=== PATIENT | female | born 1960 | race Caucasian/White ===

== ENCOUNTER 2023-08-22 01:14 | Inpatient (IN) ==
[2023-08-22] MEDS ORDERED: IOPAMIDOL 100 ML BOTTLE IV ONE (01:15)
[2023-08-22] MEDS: fentaNYL 100 MCG/2 ML VIAL IV ONE (02:01)
[2023-08-22] MEDS: ONDANSETRON 4 MG/2 ML VIAL IV ONE (02:02)
[2023-08-22 02:37] LABS: Basophils # (Auto) 0.03 K/mcL (0.00-0.30); Basophils % (Auto) 0.4 % (0.0-2.0); Eosinophils # (Auto) 0.01 K/mcL (0.00-0.70); Eosinophils % (Auto) 0.1 % (0.0-7.0); Hematocrit 36.6 % (34.1-44.9); Hemoglobin 12.7 g/dL (11.2-15.7); Lymphocytes # (Auto) 1.09 K/mcL (1.50-4.80); Lymphocytes % (Auto) 13.1 % (15.5-49.0); Mean Cell Volume 90.8 fL (80.0-100.0); Mean Corpuscular HGB Conc 34.7 g/dL (31.0-36.0); Mean Platelet Volume 12.3 fL (8.8-12.5); Monocytes # (Auto) 0.52 K/mcL (0.10-0.90); Monocytes % (Auto) 6.2 % (1.0-12.0); Neutrophils % (Auto) 80.1 % (38.0-78.0); Platelet Count 180 K/mcL (140-440); RBC 4.03 M/mcL (3.59-5.38); Red Cell Distribution Width 13.2 % (11.5-14.5); WBC 8.3 K/mcL (4.5-11.0)
[2023-08-22 02:52] LABS: ALT/SGPT 73 U/L (<40); AST/SGOT 68 U/L (<32); Albumin 4.3 gm/dL (3.2-5.2); Albumin/Globulin Ratio 1.2 (1.0-2.3); Alkaline Phosphatase 728 U/L (39-117); Bilirubin,Total 2.4 mg/dL (0.1-1.0); Blood Urea Nitrogen 10 mg/dL (8-23); Calcium 9.7 mg/dL (8.6-10.4); Carbon Dioxide 23 mmol/L (22-30); Chloride 98 mmol/L (96-108); Globulin 3.6 gm/dL (2.2-3.7); Glomerular Filtration Rate 101; Glucose 177 mg/dL (70-105)
[2023-08-22] MEDS: PROMETHAZINE 25 MG/ML VIAL IV ONE (03:05)
[2023-08-22] MEDS: KETOROLAC 15 MG/ML VIAL IV ONE (07:03)
[2023-08-22] MEDS: PIPERACILLIN SODIUM/TAZOBACTAM 3.375 GM in DEXTROSE 5% IN WATER 50 ML IV ONE (07:03)
[2023-08-22] MEDS: 0.9 % SODIUM CHLORIDE 1,000 ML IV ONE (07:10)
[2023-08-22] MEDS: ACETAMINOPHEN 1,000 MG/100 ML BAG IV ONE (14:40)
[2023-08-22] MEDS: ACETAMINOPHEN 325 MG TABLET PO ONE (14:41)
[2023-08-22] MEDS: morphine 2 MG/ML VIAL IV ONE (14:41)
[2023-08-22] MEDS: ACETAMINOPHEN 1,000 MG/100 ML BAG IV SCH (15:12)
[2023-08-22] MEDS: 0.45 % SODIUM CHLORIDE 1,000 ML IV SCH (15:12)
[2023-08-22] MEDS: PIPERACILLIN SODIUM/TAZOBACTAM 3.375 GM in DEXTROSE 5% IN WATER 100 ML IV SCH (15:36)
[2023-08-22] MEDS: DOCUSATE SODIUM 100 MG CAPSULE PO SCH (20:30)
[2023-08-22] MEDS: SENNOSIDES 1 TABLET PO SCH (20:30)
[2023-08-22] MEDS: 0.9 % SODIUM CHLORIDE 10 ML SYRINGE IV SCH (20:30)
[2023-08-23] MEDS: PIPERACILLIN SODIUM/TAZOBACTAM 3.375 GM in DEXTROSE 5% IN WATER 50 ML IV SCH (06:29)
[2023-08-23 08:30] LABS: Basophils # (Auto) 0.04 K/mcL (0.00-0.30); Basophils % (Auto) 0.2 % (0.0-2.0); Eosinophils # (Auto) 0.01 K/mcL (0.00-0.70); Eosinophils % (Auto) 0.1 % (0.0-7.0); Hematocrit 34.9 % (34.1-44.9); Hemoglobin 11.6 g/dL (11.2-15.7); Lymphocytes # (Auto) 2.03 K/mcL (1.50-4.80); Lymphocytes % (Auto) 11.7 % (15.5-49.0); Mean Cell Volume 93.6 fL (80.0-100.0); Mean Corpuscular HGB Conc 33.2 g/dL (31.0-36.0); Mean Platelet Volume 13.2 fL (8.8-12.5); Monocytes # (Auto) 1.32 K/mcL (0.10-0.90); Monocytes % (Auto) 7.6 % (1.0-12.0); Neutrophils % (Auto) 80.1 % (38.0-78.0); Platelet Count 165 K/mcL (140-440); RBC 3.73 M/mcL (3.59-5.38); Red Cell Distribution Width 13.5 % (11.5-14.5); WBC 17.4 K/mcL (4.5-11.0)
[2023-08-23 08:53] LABS: ALT/SGPT 77 U/L (<40); AST/SGOT 78 U/L (<32); Albumin 3.6 gm/dL (3.2-5.2); Albumin/Globulin Ratio 1.1 (1.0-2.3); Alkaline Phosphatase 585 U/L (39-117); Bilirubin,Direct 2.2 mg/dL (<0.3); Bilirubin,Total 3.6 mg/dL (0.1-1.0); Blood Urea Nitrogen 7 mg/dL (8-23); Calcium 8.8 mg/dL (8.6-10.4); Carbon Dioxide 23 mmol/L (22-30); Chloride 100 mmol/L (96-108); Globulin 3.2 gm/dL (2.2-3.7); Glomerular Filtration Rate 95; Glucose 133 mg/dL (70-105); Lactate Dehydrogenase 307 U/L (135-225); Phosphorous 2.6 mg/dL (2.5-4.5); Triglycerides 98 mg/dL (<150)
[2023-08-23] MEDS: HYDROmorphone 1 MG/ML SYRINGE IV PRN (11:04)
[2023-08-23 11:12] LABS: Appearance,Urine Clear (Clear); Bacteria,Urine 0 /hpf (0); Bilirubin,Urine Small mg/dL (Negative); Color,Urine Yellow; Culture Indicated,Urine No; Glucose,Urine (UA) Negative (Negative); Ketones,Urine Negative (Negative); Leukocyte Esterase,Urine Negative /uL (Negative); Nitrate,Urine Negative (Negative); Protein,Urine Trace mg/dL (Negative); Urine Blood Small ery/mcL (Negative); Urine RBC 1 /hpf (0-3); Urine Squamous Epithelial Cell 1 /hpf (0-4); Urine WBC 1 /hpf (0-4); Urobilinogen,Urine Normal
[2023-08-23] MEDS: ONDANSETRON 4 MG/2 ML VIAL IV PRN (11:13)
[2023-08-23] MEDS ORDERED: fentaNYL 100 MCG/2 ML VIAL ONE (12:58)
[2023-08-23] MEDS ORDERED: SUGAMMADEX SODIUM 200 MG/2 ML VIAL IV ONE (12:58)
[2023-08-23] MEDS ORDERED: KETAMINE 50 MG/ML Syringe IV ONE (13:00)
[2023-08-23] MEDS ORDERED: PROPOFOL 200 MG/20 ML VIAL IV ONE (13:00)
[2023-08-23] MEDS ORDERED: ROCURONIUM 10 MG/ML ML IV ONE ×2 (13:00→14:17)
[2023-08-23] MEDS ORDERED: GLYCOPYRROLATE 0.2 MG/ML VIAL IV ONE (13:01)
[2023-08-23] MEDS ORDERED: DEXAMETHASONE 10 MG/ML VIAL ONE (13:01)
[2023-08-23] MEDS ORDERED: ONDANSETRON 4 MG/2 ML VIAL ONE (13:01)
[2023-08-23] MEDS ORDERED: SUCCINYLCHOLINE 200 MG/10 ML VIAL IV ONE (13:09)
[2023-08-23] MEDS ORDERED: PHENYLephrine 1 MG/10 ML SYRINGE (ANEST) ONE (13:21)
[2023-08-23] MEDS ORDERED: MAGNESIUM SULFATE 2 GM/50 ML BAG IV ONE (13:36)
[2023-08-23] MEDS ORDERED: 0.9 % SODIUM CHLORIDE 100 ML IV ONE (14:21)
[2023-08-23] MEDS ORDERED: PHENYLEPHRINE 10 MG/ML VIAL ONE (14:21)
[2023-08-23] MEDS ORDERED: fentaNYL 100 MCG/2 ML VIAL IV PRN (14:36)
[2023-08-23] MEDS ORDERED: PROMETHAZINE 25 MG/ML VIAL IV PRN (14:36)
[2023-08-23] MEDS ORDERED: IPRATROPIUM/ALBUTEROL 3 ML AMPUL.NEB NEB PRN (14:36)
[2023-08-23] MEDS: KETOROLAC 15 MG/ML VIAL IV ONE (15:21)
[2023-08-23] MEDS: HYDROmorphone 0.5 MG/0.5 ML SYRINGE IV PRN (15:34)
[2023-08-23] MEDS: LACTATED RINGERS 1,000 ML IV SCH (22:22)
[2023-08-24 06:59] LABS: Basophils # (Auto) 0.01 K/mcL (0.00-0.30); Basophils % (Auto) 0.1 % (0.0-2.0); Eosinophils # (Auto) 0 K/mcL (0.00-0.70); Eosinophils % (Auto) 0 % (0.0-7.0); Hematocrit 34.3 % (34.1-44.9); Hemoglobin 11.5 g/dL (11.2-15.7); Lymphocytes # (Auto) 1.11 K/mcL (1.50-4.80); Lymphocytes % (Auto) 7.6 % (15.5-49.0); Mean Cell Volume 92.2 fL (80.0-100.0); Mean Corpuscular HGB Conc 33.5 g/dL (31.0-36.0); Mean Platelet Volume 12.8 fL (8.8-12.5); Monocytes # (Auto) 0.59 K/mcL (0.10-0.90); Monocytes % (Auto) 4.1 % (1.0-12.0); Neutrophils % (Auto) 87.9 % (38.0-78.0); Platelet Count 188 K/mcL (140-440); RBC 3.72 M/mcL (3.59-5.38); Red Cell Distribution Width 13.4 % (11.5-14.5); WBC 14.5 K/mcL (4.5-11.0)
[2023-08-24 08:04] LABS: ALT/SGPT 66 U/L (<40); AST/SGOT 59 U/L (<32); Albumin 3.4 gm/dL (3.2-5.2); Albumin/Globulin Ratio 1.1 (1.0-2.3); Alkaline Phosphatase 508 U/L (39-117); Bilirubin,Direct 1.5 mg/dL (<0.3); Bilirubin,Total 2.3 mg/dL (0.1-1.0); Blood Urea Nitrogen 9 mg/dL (8-23); Calcium 9.1 mg/dL (8.6-10.4); Carbon Dioxide 25 mmol/L (22-30); Chloride 98 mmol/L (96-108); Globulin 3.1 gm/dL (2.2-3.7); Glomerular Filtration Rate 101; Glucose 145 mg/dL (70-105); Lactate Dehydrogenase 308 U/L (135-225); Phosphorous 2.3 mg/dL (2.5-4.5); Triglycerides 111 mg/dL (<150); Uric Acid 2.7 mg/dL (2.5-8.0)
[2023-08-25] MEDS: oxyCODONE IR 5 MG TABLET PO SCH (12:52)
== END 2023-08-25 13:50 | disposition home or self-care (01) | DRG 418 ==
LOC: ED 01:14 → MEDSUR 14:57
PROVIDERS: ADMIT Family Medicine Adult Medicine; ATTEND Family Medicine Adult Medicine